=== PATIENT | female | born 1925 | race Caucasian/White ===

== ENCOUNTER 2017-08-06 22:55 | Emergency (ER) | payer MEDICARE, BC ==
[2017-08-06 23:13] VITALS: BP 153/91
[2017-08-07] MEDS ORDERED: Cephalexin 500 MG Cap PO ONE (00:28)
--- NOTE | 2017-08-07 00:31 | EDM.PDOC ---
ED HPI GENERAL MEDICAL PROBLEM - General Chief Complaint: Genitourinary Problem Stated Complaint: POSS UTI Time Seen by Provider: 08/07/17 00:20 Source of Information: Reports: Patient History Limitations: Reports: No Limitations - History of Present Illness INITIAL COMMENTS - FREE TEXT/NARRATIVE: 89-year-old female presents for evaluation and treatment of dysuria and increased urinary frequency. Reports that her symptoms started yesterday. Her symptoms seemed to improve stay and then now about an hour prior to arrival, her symptoms worsened again. She is complaining of dysuria, increased urinary frequency and urgency. Urine is cloudy in appearance. She has been drinking plenty of fluids and did take some Tylenol earlier. No fevers, chills, nausea or vomiting. No back pain, out of than normal, or any abdominal pain. Patient is rather hard of hearing. Treatments GAMING DEPARTMENT HEAD: Reports: Acetaminophen Lower Abdomen Pain Score (Numeric/FACES): 8 - Related Data Allergies Allergy/AdvReac Type Severity Reaction Status Date / Time ibuprofen Allergy Itching Verified 08/06/17 23:04 levofloxacin [From Levaquin] Allergy Rash Verified 08/06/17 23:04 Sulfa (Sulfonamide Allergy Rash Verified 08/06/17 23:04 Antibiotics) Home Meds: Home Meds Citalopram [Celexa] 10 mg PO DAILY 10/04/15 [History] Hydrochlorothiazide 25 mg PO DAILY 10/04/15 [History] Metoprolol Tartrate [Lopressor] 12.5 mg PO BID 10/04/15 [History] Omeprazole 20 mg PO DAILY 10/04/15 [History] Oxybutynin 5 mg PO BID 10/04/15 [History] Acetaminophen/HYDROcodone [[place] 325-5 MG] 1 tab PO Q4H PRN #30 tablet 10/08/15 [Rx] Multivit-Min/FA/Lycopene/Lut [Centrum Silver Tablet] 1 each PO DAILY 04/15/16 [ History] Potassium Chloride 20 meq PO DAILY 04/15/16 [History] Cephalexin 500 mg PO BID #13 tablet 08/07/17 [Rx] Past Medical History HEENT History: Reports: Cataract, Macular Degeneration Cardiovascular History: Reports: Hypertension Respiratory History: Reports: COPD, Pneumonia, Recurrent Gastrointestinal History: Reports: GERD [employer] History: Reports: Psychiatric History: Reports: Anxiety - Infectious Disease History Infectious Disease History: Reports: Chicken Pox - Past Surgical History HEENT Surgical History: Reports: Cataract Surgery, Tonsillectomy GI Surgical History: Reports: Appendectomy, Cholecystectomy Social & Family History - Family History Family Medical History: Unobtainable - Tobacco Use Smoking Status *Q: Never Smoker Second Hand Smoke Exposure: No - Caffeine Use Caffeine Use: Reports: Coffee - Recreational Drug Use Recreational Drug Use: No - Living Situation & Occupation Living situation: Reports: , Extended Care Facility Occupation: Retired ED ROS GENERAL - Review of Systems Review Of Systems: See Below Constitutional: Denies: Fever, Chills GI/Abdominal: Denies: Abdominal Pain, Nausea, Vomiting : Reports: Dysuria, Frequency, Urgency Musculoskeletal: Denies: Back Pain ED EXAM, RENAL/ - Physical Exam Exam: See Below Exam Limited By: No Limitations General Appearance: Alert, WD/WN, No Apparent Distress Ears: Hearing Loss Respiratory/Chest: No Respiratory Distress, Lungs Clear, Normal Breath Sounds Cardiovascular: Normal Peripheral Pulses, Regular Rate, Rhythm, No Murmur GI/Abdominal: Soft, Non-Tender Back Exam: No: CVA Tenderness (L), CVA Tenderness (R) Neurological: Alert, Oriented, Normal Cognition Psychiatric: Normal Affect, Normal Mood Skin Exam: Warm, Dry, Normal Color Course - Vital Signs Last Recorded V/S: Last Vital Signs Temp 36.6 C 08/06/17 23:06 Pulse 79 08/06/17 23:06 Resp 16 08/06/17 23:06 BP 153/91 H 08/06/17 23:06 Pulse Ox 94 L 08/06/17 23:06 - Orders/Labs/Meds Orders: Active Orders 24 hr Category Date Time Status CULTURE URINE [RM] Stat Lab 08/07/17 00:05 Ordered Labs: Laboratory Tests 08/06/17 Range/Units 23:05 Urine Color Yellow (Yellow) Urine Appearance Turbid H (Clear) Urine pH 5.5 (5.0-8.0) Ur Specific [place] 1.015 (1.005-1.030) Urine Protein 1+ H (Negative) Urine Glucose (UA) Negative (Negative) Urine Ketones Negative (Negative) Urine Occult Blood 1+ H (Negative) Urine Nitrite Negative (Negative) Urine Bilirubin Negative (Negative) Urine Urobilinogen 0.2 (0.2-1.0) Ur Leukocyte Esterase 3+ H (Negative) Urine RBC 0-5 (0-5) /hpf Urine WBC >100 H (0-5) /hpf Urine WBC Clumps Few (NOT SEEN) /hpf Ur Epithelial Cells 0-5 (0-5) /hpf Urine Bacteria Many H (FEW) /hpf Hyaline Casts 0-5 (0-5) /lpf Urine Mucus Not seen (FEW) /hpf Meds: Medications Discontinued Medications Generic Name Dose Route Start Last Admin Trade Name Patrick PRN Reason Stop Dose Admin Cephalexin 500 mg 08/07/17 00:28 08/07/17 00:40 Keflex PO 08/07/17 00:29 500 mg ONETIME ONE Administration - Re-Assessments/Exams Free Text/Narrative Re-Assessment/Exam: 08/07/17 00:40 Patient has a urinary tract infection. Will give a dose of Keflex here in the ER tonight with a prescription to electronically sent to [facility] to be filled tomorrow for the remainder of her prescription. Urine has been sent for culture. Discharge instructions as documented. Departure - Departure Time of Disposition: 00:41 Disposition: Home, Self-Care 01 Condition: Fair Clinical Impression: UTI, Urinary tract infectious disease - Discharge Information Prescriptions: Cephalexin 500 mg PO BID #13 tablet Instructions: Urinary Tract Infection, Adult Referrals: Agueda Pickens SACK SORTER [Primary Care Provider] - Forms: ED Department Discharge Additional Instructions: Continue to drink plenty of fluids. Keflex 1 tab twice a day for 7 days. your first dose was given here in the ER. Start your prescription tomorrow. Your prescription was electronically signed to [facility]. Follow-up with your primary care provider if your symptoms persist beyond one week. Please return to the ER if your symptoms change or worsen. - My Orders Last 24 Hours: My Active Orders 08/07/17 00:05 CULTURE URINE [RM] Stat - Assessment/Plan Last 24 Hours: My Active Orders 08/07/17 00:05 CULTURE URINE [RM] Stat
== END 2017-08-07 00:40 | disposition home or self-care (01) ==
LOC: JD.ED 22:55
DX: N39.0 Urinary tract infection, site not specified (principal); I10 Essential (primary) hypertension; Z88.6 Allergy status to analgesic agent; Z88.2 Allergy status to sulfonamides; Z88.1 Allergy status to other antibiotic agents; Z79.899 Other long term (current) drug therapy
CPT/HCPCS: 81001; 87086; 87088; 87186; 99283; A9270